=== PATIENT | female | born 1950 | race Caucasian/White ===

== ENCOUNTER 2016-08-28 16:41 | Emergency (ER) | payer BC ==
[2016-08-28] MEDS ORDERED: Tetan/Diph/Pertus SYR(Tdap)* 0.5 ML SYR(BOOSTRIX) use SYR IM ONE (17:06)
--- NOTE | 2016-08-28 18:21 | UC ---
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 LAST TETANUS SHOT UNKNOWN. - History Of Current Complaint Chief Complaint: EDLacSutureRecheck Stated Complaint: FINGER LAC Time Seen by Provider: 08/28/16 17:01 Hx Obtained From: Patient Laceration Location: Finger Mechanism Of Injury: Sharp Trauma Onset/Duration: Sudden Onset, Lasting Hours Severity: Moderate Pain Intensity: 6 Aggravating Factors: Movement, Other: - TOUCH Related History: Dominant Hand Right - Allergies/Home Medications Allergies/Adverse Reactions: Allergies Allergy/AdvReac Type Severity Reaction Status Date / Time Azithromycin [From Zithromax] Allergy See Comment Verified 08/28/16 18:08 Prednisone Allergy See Comment Verified 08/28/16 18:08 Sulfa Antibiotics Allergy Rash Verified 08/28/16 18:08 PMH/Surg Hx/FS Hx/Imm Hx Previously Healthy: Yes - Family History Known Family History: Negative: Blood Disorder - Social History Occupation: Employed Full-time Lives: With Family Alcohol Use: Weekly Alcohol Amount: 1 glass of wine in evening "more often than not" almost daily Substance Use Type: None Smoking Status (MU): Never Smoked Tobacco Review of Systems Constitutional: Negative Skin: Other - LACERATION RIGHT THIRD FINGER Eyes: Negative ENT: Negative Respiratory: Negative Cardiovascular: Negative Gastrointestinal: Negative Genitourinary: Negative Motor: Negative Neurovascular: Negative Musculoskeletal: Negative Neurological: Negative Psychological: Negative All Other Systems Reviewed And Are Negative: Yes Physical Exam Triage Information Reviewed: Yes Appearance: Well-Appearing, No Pain Distress, Well-Nourished Vital Signs: Initial Vital Signs Temp 97.6 F 08/28/16 16:46 Pulse 69 08/28/16 16:46 Resp 16 08/28/16 16:46 BP 151/70 08/28/16 16:46 Pulse Ox 96 08/28/16 16:46 Vital Signs Reviewed: Yes Eye Exam: Normal Eyes: Positive: Conjunctiva Clear ENT Exam: Normal ENT: Positive: Normal ENT inspection, Hearing grossly normal Dental Exam: Normal Neck exam: Normal Neck: Positive: Supple, Nontender Respiratory Exam: Normal Respiratory: Positive: Chest non-tender, Lungs clear, Normal breath sounds Cardiovascular Exam: Normal Cardiovascular: Positive: RRR, No Murmur, Pulses Normal Abdominal Exam: Normal Abdomen Description: Positive: Nontender, No Organomegaly Musculoskeletal Exam: Normal Neurological Exam: Normal Psychological Exam: Normal Skin Exam: Other - LACERATION RIGHT THIRD FINGER Laceration Repair - Laceration Repair 1 Description: Irregular - TWO V-SHAPED LACERATION IN CLOSE PROXIMITY ON RADIAL ASPECT OF DISTAL RIGHT THIRD FINGER Laceration Size After Repair: Length (cm) - 3, Width (mm) - 10, Depth (mm) - 5 Type Injection: Digital Anesthesia Used: 2.0% Lido Cleansing Completed Via Routine Prep: Yes Irrigation With Pressure Irrigation Device: Yes Closure Material: Sutures - 4 X 4-0 PROLENE Suture Of: Skin Suture Type: Prolene Laceration Course/Dx - Differential Dx - Laceration/Wound Differental Diagnoses: Laceration Provider Diagnoses: RIGHT THIRD FINGER LACERATION WITH REPAIR Discharge - Discharge Plan Condition: Stable Disposition: HOME Patient Education Materials: Diphtheria Tetanus and Pertussis Vaccine (ED), Finger Laceration (ED) Referrals: [facility] [Outside] Additional Instructions: PLEASE HAVE SUTURES REMOVED IN TEN DAYS
[2016-08-28 19:00] VITALS: BP 130/76
== END 2016-08-28 18:58 | disposition home or self-care (01) ==
LOC: ED 16:41
DX: S61.212A Laceration without foreign body of right middle finger without damage to nail, initial encounter (principal); W45.8XXA Other foreign body or object entering through skin, initial encounter; Y93.9 Activity, unspecified; Y92.9 Unspecified place or not applicable
CPT/HCPCS: 12002; 90471; 90715; 99281

== ENCOUNTER 2017-03-26 18:50 | Emergency (ER) | payer MEDICARE ==
[2017-03-26] MEDS ORDERED: Ciprofloxacin 0.3% OPTH.SOL* 2.5 ML BTL LEFT EYE ONE (19:53)
--- NOTE | 2017-03-26 19:58 | ED ---
Throat Pain/Nasal Congestion - HPI Summary HPI Summary: 66F presents with tree branch to left eye today. She states that she feels like it is scratched. She does not wear contacts. She denies any change in vision, blurry vision. She denies any history of eye injury. He tetanus is up to date. She denies any foreign body. She was trimming the hedges when the branch hit her in the eye. - History of Current Complaint Chief Complaint: EDEyeProblem Time Seen by Provider: 03/26/17 19:11 - Allergies/Home Medications Allergies/Adverse Reactions: Allergies Allergy/AdvReac Type Severity Reaction Status Date / Time Azithromycin [From Zithromax] Allergy See Comment Verified 08/28/16 18:08 Prednisone Allergy See Comment Verified 08/28/16 18:08 Sulfa Antibiotics Allergy Rash Verified 08/28/16 18:08 PMH/Surg Hx/FS Hx/Imm Hx Endocrine/Hematology History: Reports: Hx Thyroid Disease Denies: Hx Anticoagulant Therapy Cardiovascular History: Denies: Hx Myocardial Infarction Infectious Disease History: Denies: Traveled Outside the [place] in Last 30 Days - Family History Known Family History: Positive: Cardiac Disease Negative: Blood Disorder - Social History Alcohol Use: Weekly Alcohol Amount: 1 glass of wine in evening "more often than not" almost daily Substance Use Type: Reports: None Smoking Status (MU): Never Smoked Tobacco Review of Systems Negative: Fever Positive: Erythema Negative: Chest Pain Negative: Shortness Of Breath All Other Systems Reviewed And Are Negative: Yes Physical Exam Triage Information Reviewed: Yes Vital Signs On Initial Exam: Initial Vitals Temp Pulse Resp BP Pulse Ox 98.5 F 82 18 131/77 97 03/26/17 19:02 03/26/17 19:02 03/26/17 19:02 03/26/17 19:02 03/26/17 19:02 Vital Signs Reviewed: Yes Appearance: Positive: Well-Appearing Skin: Positive: Warm, Dry Head/Face: Positive: Normal Head/Face Inspection Eyes: Positive: EOMI, BERNABE, Conjunctiva Inflammed ENT: Positive: Normal ENT inspection, Pharynx normal, TMs normal Respiratory/Lung Sounds: Positive: Clear to Auscultation, Breath Sounds Present Cardiovascular: Positive: Normal, RRR Procedures - Eye Procedure Alcaine Drops Administered: Yes - 1mm corneal abrasion on left eye at 9 position Diagnostics - Vital Signs Vital Signs Temp Pulse Resp BP Pulse Ox 03/26/17 19:02 98.5 F 82 18 131/77 97 - Laboratory Lab Statement: Any lab studies that have been ordered have been reviewed, and results considered in the medical decision making process. EENT Course/Dx - Course Course Of Treatment: 66F presents with tree branch to left eye today. She states that she feels like it is scratched. She does not wear contacts. She denies any change in vision, blurry vision. She denies any history of eye injury. He tetanus is up to date. She denies any foreign body. She was trimming the hedges when the branch hit her in the eye. on exam has small corneal abrasion. will treat with cipro due to allergies. told to follow up with optho. patient understands and agrees with plan. - Differential Diagnoses Differential Diagnoses: Conjunctivitis, Corneal Abrasion, Foreign Body - Diagnoses Provider Diagnoses: Left corneal abrasion Discharge - Discharge Plan Condition: Good Disposition: HOME Patient Education Materials: Corneal Abrasion (ED) Referrals: Pastora Painter MD [Primary Care Provider] - Guero Khalil MD [Medical Doctor] - Additional Instructions: Place 1 drop in eye 4 times a day for 5 days Use artificial tears or saline to rinse eye for symptomatic relief Take Tylenol or ibuprofen for pain Follow up with ophthalmology if no improvement in 5 days Return to ED if develop any new or worsening symptoms
[2017-03-26 20:32] VITALS: BP 143/74
== END 2017-03-26 20:36 | disposition home or self-care (01) ==
LOC: ED 18:50
DX: S05.02XA Injury of conjunctiva and corneal abrasion without foreign body, left eye, initial encounter (principal); W22.8XXA Striking against or struck by other objects, initial encounter; Y93.H2 Activity, gardening and landscaping; Y92.9 Unspecified place or not applicable; Z88.1 Allergy status to other antibiotic agents; Z88.2 Allergy status to sulfonamides; E07.9 Disorder of thyroid, unspecified
CPT/HCPCS: 99281; A9270-GY

== ENCOUNTER 2017-11-29 19:52 | Emergency (ER) | payer MEDICARE ==
[2017-11-29 20:23] VITALS: BP 142/81
[2017-11-29] MEDS ORDERED: Nitrofurantoin Macrocrystals* 50 MG CAP PO ONE (21:04)
--- NOTE | 2017-11-29 21:16 | UC ---
Complaint Female HPI - HPI Summary HPI Summary: 67 yo WF h/o hashimotos and borderline DM c/o urinary urgency, frequency and lower abdominal pressure x few days, worsening. Denies LBP, f/c/n/v/d - History Of Current Complaint Chief Complaint: UCGU Stated Complaint: BURNING URINATION Time Seen by Provider: 11/29/17 20:48 Hx Obtained From: Patient Onset/Duration: Sudden Onset Timing: Constant, Lasting Days Severity Initially: Moderate Severity Currently: Moderate Pain Intensity: 2 - Allergies/Home Medications Allergies/Adverse Reactions: Allergies Allergy/AdvReac Type Severity Reaction Status Date / Time azithromycin [From Zithromax] Allergy See Comment Verified 11/29/17 20:24 prednisone Allergy See Comment Verified 11/29/17 20:24 Sulfa (Sulfonamide Allergy Rash Verified 11/29/17 20:24 Antibiotics) Home Medications: Home Medications Levothyroxine TAB* [Synthroid 100 MCG TAB*] 100 mcg PO DAILY 11/29/17 [History Confirmed 11/29/17] Thyroid,Pork [[place] Thyroid] 15 mg PO DAILY 11/29/17 [History Confirmed ] PMH/Surg Hx/FS Hx/Imm Hx - Additional Past Medical History Additional PMH: borderline DM Endocrine History: Thyroid Disease, Hypothyroidism Other Endocrine History: Hashimotos Other History Of: Negative For: Anticoagulant Therapy - Surgical History Surgical History: Yes Surgery Procedure, Year, and Place: LEFT OOPHORECTOMY (FOR DERMOID CYST), APPENDECTOMY, CRYOSURGERY TO CERVIX - Family History Known Family History: Positive: Cardiac Disease Negative: Blood Disorder - Social History Alcohol Use: Weekly Alcohol Amount: 1 glass of wine in evening "more often than not" almost daily Substance Use Type: None Smoking Status (MU): Never Smoked Tobacco Review of Systems Constitutional: Negative Skin: Negative Eyes: Negative ENT: Negative Respiratory: Negative Cardiovascular: Negative Gastrointestinal: Negative Genitourinary: Frequency, Urgency Motor: Negative Neurovascular: Negative Musculoskeletal: Negative Neurological: Negative Psychological: Negative All Other Systems Reviewed And Are Negative: Yes Physical Exam Triage Information Reviewed: Yes Appearance: No Pain Distress Vital Signs: Initial Vital Signs Temp 37.1 C 11/29/17 20:18 Pulse 74 11/29/17 20:18 Resp 16 11/29/17 20:18 BP 142/81 11/29/17 20:18 Pulse Ox 95 11/29/17 20:18 Eye Exam: Normal ENT Exam: Normal Dental Exam: Normal Neck exam: Normal Neck: Positive: 1 Respiratory Exam: Normal Cardiovascular Exam: Normal Abdominal Exam: Normal Abdomen Description: Positive: Soft, Other: - suprapubic tenderness. Negative: CVA Tenderness (R), CVA Tenderness (L) Musculoskeletal Exam: Normal Neurological Exam: Normal Psychological Exam: Normal Skin Exam: Normal Complaint Female Dx - Course Course Of Treatment: UA neg but pt has clinically dx of ascending UTI-likely cystitis, tx with macrobid BID x7 days and send out for Ucx - Differential Dx/Diagnosis Provider Diagnoses: ascending UTI. elevated BP in acute illness Discharge - Sign-Out/Discharge Documenting (check all that apply): Discharge/Admit/Transfer - Discharge Plan Condition: Stable Disposition: HOME Prescriptions: Nitrofurantoin Macrocrystal [Nitrofurantoin] 100 mg PO BID 7 Days #14 capsule Patient Education Materials: Urinary Tract Infection in Women (ED) Referrals: Pastora Painter MD [Primary Care Provider] - - Billing Disposition and Condition Condition: STABLE Disposition: HOME
== END 2017-11-29 21:18 | disposition home or self-care (01) ==
LOC: UCEAST 19:52
DX: N39.0 Urinary tract infection, site not specified (principal); R03.0 Elevated blood-pressure reading, without diagnosis of hypertension; E06.3 Autoimmune thyroiditis; E03.9 Hypothyroidism, unspecified; R73.03 Prediabetes; Z88.1 Allergy status to other antibiotic agents; Z88.2 Allergy status to sulfonamides; Z88.8 Allergy status to other drugs, medicaments and biological substances
CPT/HCPCS: 81003; 87086; 99212; A9270-GY; G0463